=== PATIENT | male | born 2000 | race African-American/Black ===

== ENCOUNTER 2019-08-02 16:46 | Emergency (ER) | payer SELFPAY ==
[~2019-08-02] VITALS: Ht 167.6 cm; Wt 75.0 kg
[2019-08-02 16:58] VITALS: BP 136/61
[2019-08-02] MEDS ORDERED: IBUPROFEN 400 MG TABLET. PO ONE (17:15)
--- NOTE | 2019-08-02 17:48 | RAD ---
FINGER(S) RIGHT DATE: 08/02/2019 5:11 PM INDICATION: Reason: R middle finger pain distal to the PIP after shut in car door / Spl. Instructions: / History: COMPARISON: None. FINDINGS: Bones: There is no evidence of acute fracture or dislocation. Joints: The joint spaces are normal. Miscellaneous: None. IMPRESSION: No evidence of acute fracture. Electronically signed by: Orlando Luis MD (08/02/2019 5:45 PM) [id number]
--- NOTE | 2019-08-02 17:57 | PHYS DOC ---
Past Medical History Past Medical History: No Pertinent History Past Surgical History: Other Additional Past Surgical Histo: LEFT ELBOW SX Smoking Status: Never Smoker Alcohol Use: Rarely General Adult EDM: Chief Complaint: FINGER INJURY HPI: HPI: Patient is a 18 year old AA male who presents to the emergency department with complaints of right middle finger pain distal to the PIP after accidentally shutting his finger in a car door this afternoon. Patient denies any decreased range of motion. He denies any decreased sensation, numbness, or tingling of the affected finger. He currently rates his pain 8 out of 10 on the pain scale. Patient states he did not take any medication for relief of his discomfort prior to arrival. Review of Systems: Review of Systems: Constitutional: Denies fever or chills. [] HENT: Denies nasal congestion or sore throat. [] Respiratory: Denies cough or shortness of breath. [] GI: Denies abdominal pain, nausea, or vomiting. Musculoskeletal: See HPI Integument: Denies rash. [] Neurologic: Denies headache, focal weakness or sensory changes. [] Psychiatric: Denies depression or anxiety. [] Heart Score: Risk Factors: Risk Factors: DM, Current or recent (<one month) smoker, HTN, HLP, family history of CAD, obesity. Risk Scores: Score 0 - 3: 2.5% MACE over next 6 weeks - Discharge Home Score 4 - 6: 20.3% MACE over next 6 weeks - Admit for Clinical Observation Score 7 - 10: 72.7% MACE over next 6 weeks - Early Invasive Strategies Current Medications: Current Medications Medications (Trade) Dose Ordered Sig/[facility] Start Time Stop Time Status Last Admin Dose Admin Ibuprofen (Motrin) 600 mg 1X ONCE 08/02/19 17:15 08/02/19 17:16 DC 08/02/19 17:24 600 MG Allergies: Allergies: Allergies Coded Allergies Type Severity Reaction Last Updated Verified No Known Drug Allergies 08/02/19 No Physical Exam: PE: Constitutional: Well developed, well nourished, no acute distress, non-toxic appearance. [] HENT: Normocephalic, atraumatic, bilateral external ears normal, oropharynx moist, no oral exudates, nose normal. [] Eyes: PERRLA, EOMI, conjunctiva normal, no discharge. [] Neck: Normal range of motion, no tenderness, supple, no stridor. [] Cardiovascular:Heart rate regular rhythm, no murmur [] Lungs & Thorax: Bilateral breath sounds clear to auscultation [] Abdomen: Bowel sounds normal, soft, no tenderness, no masses, no pulsatile masses. [] Skin: Warm, dry, no erythema, no rash. [] Back: No tenderness, no CVA tenderness. [] Extremities: No tenderness, no cyanosis, no clubbing, ROM intact, no edema. [] Neurologic: Alert and oriented X 3, normal motor function, normal sensory function, no focal deficits noted. [] Psychologic: Affect normal, judgement normal, mood normal. [] Current Patient Data: Vital Signs: Vital Signs Date Time Temp Pulse Resp B/P (MAP) Pulse Ox O2 Delivery O2 Flow Rate FiO2 08/02/19 16:58 98.7 91 18 136/61 (86) 97 Room Air 98.7 EKG: EKG: [] Radiology/Procedures: Radiology/Procedures: PROCEDURE: FINGER(S) RIGHT FINGER(S) RIGHT DATE: 08/02/2019 5:11 PM INDICATION: Reason: R middle finger pain distal to the PIP after shut in car door / Spl. Instructions: / History: COMPARISON: None. FINDINGS: Bones: There is no evidence of acute fracture or dislocation. Joints: The joint spaces are normal. Miscellaneous: None. IMPRESSION: No evidence of acute fracture. [] Course & Med Decision Making: Course & Med Decision Making Pertinent Labs and Imaging studies reviewed. (See chart for details) [] Dragon Disclaimer: Dragon Disclaimer: This electronic medical record was generated, in whole or in part, using a voice recognition dictation system. Departure Departure Impression: Primary Impression: Pain of right middle finger Additional Impression: Injury of right middle finger Qualified Codes: S69.91XA - Unspecified injury of right wrist, hand and finger(s), initial encounter Disposition: 01 HOME, SELF-CARE Condition: STABLE Referrals: NO PCP (PCP) Patient Instructions: Crush Injury, Fingers or Toes Additional Instructions: Recommend that you take Tylenol or ibuprofen as needed for pain. Recommend application of ice, elevation, and rest of affected extremity. Follow-up with your primary care doctor if symptoms persist. Return to the ER if your symptoms worsen. Justicifation of Admission Dx: Justifications for Admission: Justification of Admission Dx: N/A ROSA ISELA OSUNA BROOMCORN SORTER Aug 02, 2019 17:57
== END 2019-08-02 18:05 | disposition home or self-care (01) ==
LOC: ER 16:46
DX: S69.81XA Other specified injuries of right wrist, hand and finger(s), initial encounter (principal); M79.644 Pain in right finger(s); Z98.890 Other specified postprocedural states; W23.0XXA Caught, crushed, jammed, or pinched between moving objects, initial encounter; Y93.89 Activity, other specified; Y92.89 Other specified places as the place of occurrence of the external cause; Y99.8 Other external cause status
CPT/HCPCS: 73140; 99283